=== PATIENT | female | born 1970 | race Caucasian/White ===

== ENCOUNTER 2016-10-16 14:24 | Emergency (ER) | payer OTHER ==
[~2016-10-16] VITALS: Ht 170.2 cm; Wt 78.9 kg
[~2016-10-16 14:24] MED LIST: ANIMAL CHEWS1 EACH PO; CALCIUM500 M1 PO; FISH OIL 1,0001 EAC2 NG; IBUPROFEN800 MG PO; IRON325 M1 PO; NIACIN500 MG PO; OMEPRAZOLE20 MG PO; PERCOCET 5-3251 EACH PO; VITAMIN E100 UNI3 PO
[2016-10-16] MEDS ORDERED: PROBIOTIC1 EAC1 PO (14:34)
--- OUTSIDE RECORDS SUMMARY | 2016-10-16 14:39 | XMS ---
Demographics + + + | Address | [address] | | | [address] | | | [place] [address] | + + + | Preferred Language | Unknown | + + + | Marital Status | Unknown | + + + | Jew Affiliation | Unknown | + + + | Race | Unknown | + + + | Ethnic Group | Unknown | + + + Author + + + | Author | [facility] | + + + | Organization | [facility] | + + + | Address | [address] | | | [place] [address] | + + + | Phone | | + + + Care Team Providers + + + + | Care Clinical Research Tech Name | Role | Phone | + + + + Unavailable | Unavailable | + + + + PROBLEMS +---------+ + + +--------+ + + | Type | Condition | ICD9-CM | FTJ58-CW | Onset | Condition | SNOMED | | | | Code | Code | Dates | Status | Code | +---------+ + + +--------+ + + | Problem | Hiatal | | K44.9 | | Active | [id number] | | | hernia | | | | | | +---------+ + + +--------+ + + | Problem | Hepatitis | R76.8 | | | Active | [id number] | | | C antibody | | | | | | | | positive | | | | | | | | in blood | | | | | | +---------+ + + +--------+ + + | Problem | Hyperlipid | | E78.5 | | Active | [id number] | | | emia | | | | | | +---------+ + + +--------+ + + | Problem | GERD | | K21.9 | | Active | [id number] | | | (gastroeso | | | | | | | | phageal | | | | | | | | reflux | | | | | | | | disease) | | | | | | +---------+ + + +--------+ + + | Problem | Hepatitis | Z22.52 | | | Active | [id number] | | | C carrier | | | | | | +---------+ + + +--------+ + + | Problem | Hypertensi | | I10 | | Active | [id number] | | | on | | | | | | +---------+ + + +--------+ + + ALLERGIES Unknown Allergies SOCIAL HISTORY No smoking Hx information available PLAN OF CARE VITAL SIGNS MEDICATIONS Unknown Medications RESULTS No Results PROCEDURES No Known procedures IMMUNIZATIONS No Known Immunizations"
--- OUTSIDE RECORDS SUMMARY | 2016-10-16 14:39 | XMS ---
Demographics + + + | Address | [address] | | | [address] | | | [place] [address] | + + + | Preferred Language | Unknown | + + + | Marital Status | Unknown | + + + | Worship Affiliation | Unknown | + + + | Race | Unknown | + + + | Ethnic Group | Unknown | + + + Author + + + | Author | [facility] | + + + | Organization | [facility] | + + + | Address | [address] | | | [place] [address] | + + + | Phone | | + + + Care Team Providers + + + + | Care Technical Assistance Consultant Name | Role | Phone | + + + + Unavailable | Unavailable | + + + + PROBLEMS +---------+ + + +--------+ + + | Type | Condition | ICD9-CM | WJX32-WC | Onset | Condition | SNOMED | | | | Code | Code | Dates | Status | Code | +---------+ + + +--------+ + + | Problem | Hiatal | | K44.9 | | Active | [id number] | | | hernia | | | | | | +---------+ + + +--------+ + + | Problem | Hepatitis | R76.8 | | | Active | [id number] | | | C antibody | | | | | | | | positive | | | | | | | | in blood | | | | | | +---------+ + + +--------+ + + | Problem | Hyperlipid | | E78.5 | | Active | [id number] | | | emia | | | | | | +---------+ + + +--------+ + + | Problem | GERD | | K21.9 | | Active | [id number] | | | (gastroeso | | | | | | | | phageal | | | | | | | | reflux | | | | | | | | disease) | | | | | | +---------+ + + +--------+ + + | Problem | Hepatitis | Z22.52 | | | Active | [id number] | | | C carrier | | | | | | +---------+ + + +--------+ + + | Problem | Hypertensi | | I10 | | Active | [id number] | | | on | | | | | | +---------+ + + +--------+ + + ALLERGIES + + + + +--------+ | Substance | Reaction | Event Type | Date | Status | + + + + +--------+ | Simvastatin | muscle aches | Drug Allergy | Aug, | Active | + + + + +--------+ SOCIAL HISTORY No smoking Hx information available PLAN OF CARE + +---------+ | Activity | Details | + +---------+ +---+ | | +---+ + + + | Follow Up | 6 Months Reason:null | + + + | Pending Test | Lipid Panel | + + + VITAL SIGNS + + + + | Height | 67.5 in | 2016-08-24 | + + + + | Weight | 176.4 lbs | 2016-08-24 | + + + + | BMI | 27.22 kg/m2 | 2016-08-24 | + + + + | Temperature | 98.5 degrees Fahrenheit | 2016-08-24 | + + + + | Heart Rate | 61 /min | 2016-08-24 | + + + + | Blood pressure systolic | 131 mm Hg | 2016-08-24 | + + + + | Blood pressure diastolic | 79 mm Hg | 2016-08-24 | + + + + MEDICATIONS + + + + +--------+ + +--------+ | Medicati | Instruct | Dosage | Frequenc | Start | End Date | Duration | Status | | on | ions | | y | Date | | | | + + + + +--------+ + +--------+ | Probioti | | | | | | | Active | | c | | | | | | | | + + + + +--------+ + +--------+ | Omeprazo | | TAKE ONE | | | | | Active | | le 20 MG | | CAPSULE | | | | | | | | | BY | | | | | | | | | MOUTH | | | | | | | | | EVERY | | | | | | | | | DAY | | | | | | + + + + +--------+ + +--------+ | Calcium | Orally | 1 tablet | 24h | | | 30 | Active | | 500 MG | once a | with | | | | day(s) | | | | day | meals | | | | | | + + + + +--------+ + +--------+ | Vitamin | Orally | 1 | 24h | | | 30 | Active | | E 100 | Once a | capsule | | | | day(s) | | | UNIT | day | | | | | | | + + + + +--------+ + +--------+ | Fish Oil | Orally | 2 | 24h | | | | Active | | 300 MG | Once a | capsule | | | | | | | | day | with a | | | | | | | | | meal | | | | | | + + + + +--------+ + +--------+ | One | | 1 tablet | 24h | | | | Active | | Daily | | | | | | | | | For | | | | | | | | | Women | | | | | | | | + + + + +--------+ + +--------+ RESULTS No Results PROCEDURES + + + + + | Procedure | Date Ordered | Related Diagnosis | Body Site | + + + + + | Est Level III | August 24, 2016 | | | | Intermediate | | | | + + + + + | [facility] MED/CURRENT | August 24, 2016 | | | | MED MERGE | | | | + + + + + | DOC MEDS VERIFIED | August 24, 2016 | | | | W/PT OR RE | | | | + + + + + IMMUNIZATIONS No Known Immunizations"
[2016-10-16] MEDS ORDERED: KETOROLAC TROME10 MG PO (14:49)
[2016-10-16] MEDS ORDERED: BACLOFEN20 MG PO (14:49)
== END 2016-10-16 15:07 | disposition home or self-care (01) ==
LOC: ED 14:24
DX: M54.6 Pain in thoracic spine (principal); M54.5 Low back pain; Z87.891 Personal history of nicotine dependence; Z88.8 Allergy status to other drugs, medicaments and biological substances; Z79.899 Other long term (current) drug therapy
CPT/HCPCS: 99283

== ENCOUNTER 2022-01-14 11:02 | Emergency (ER) | payer OTHER ==
[~2022-01-14] VITALS: Ht 170.2 cm; Wt 85.5 kg
[~2022-01-14 11:02] MED LIST changes: +BACLOFEN20 MG PO; +KETOROLAC TROME10 MG PO; +PROBIOTIC1 EAC1 PO
== END 2022-01-14 12:14 | disposition home or self-care (01) ==
LOC: ED 11:02
DX: K11.8 Other diseases of salivary glands (principal); Z88.8 Allergy status to other drugs, medicaments and biological substances; Z79.899 Other long term (current) drug therapy
CPT/HCPCS: 99283